=== PATIENT | female | born 1965 | race Asian ===

== ENCOUNTER 2025-01-25 07:47 | Emergency (ER) | payer MEDICAID ==
[~2025-01-25] VITALS: Ht 157.5 cm; Wt 50.0 kg
[2025-01-25 08:02] VITALS: TEMP 98.2
[2025-01-25] MEDS ORDERED: VALA10002 PO (08:15)
[2025-01-25 09:09] VITALS: BP 141/77; PULSE 82; RESP 16; O2SAT 100
[2025-01-25] MEDS: ValACYclovir HCL 500 MG TABLET PO ONE (09:09)
== END 2025-01-25 09:15 | disposition home or self-care (01) ==
LOC: EMS 07:49
DX: B02.9 Zoster without complications (principal); I10 Essential (primary) hypertension
CPT/HCPCS: 99283